=== PATIENT | female | born 1945 | race Caucasian/White ===

== ENCOUNTER → 2018-12-15 | Outpatient (CLI) | payer MEDICARE, MEDICAID | END | disposition home or self-care (01) | LOC: CARD 09:53 | PROVIDERS: ATTEND Psychiatry & Neurology Neurology | DX: S09.90XA Unspecified injury of head, initial encounter (principal); X58.XXXA Exposure to other specified factors, initial encounter; Y93.89 Activity, other specified; Y92.89 Other specified places as the place of occurrence of the external cause; Y99.8 Other external cause status ==

== ENCOUNTER 2019-06-19 14:06 | Emergency (ER) | payer MEDICARE, MEDICAID ==
[~2019-06-19] VITALS: Ht 162.6 cm; Wt 70.0 kg
[2019-06-19] MEDS ORDERED: SITA1TBM PO (14:11)
[2019-06-19] MEDS ORDERED: METO-396 PO (14:11)
[2019-06-19] MEDS ORDERED: ATOR10TA69 PO (14:11)
[2019-06-19] MEDS ORDERED: LEVO25TA7 PO (14:11)
[2019-06-19] MEDS ORDERED: ACETAMINOPHEN 325MG TABLET PO ONE (16:00)
[2019-06-19 19:16] VITALS: BP 158/76
== END 2019-06-19 19:16 | disposition home or self-care (01) ==
LOC: ER 14:06
DX: S52.611A Displaced fracture of right ulna styloid process, initial encounter for closed fracture (principal); S52.591A Other fractures of lower end of right radius, initial encounter for closed fracture; W10.8XXA Fall (on) (from) other stairs and steps, initial encounter; Y93.01 Activity, walking, marching and hiking; Y92.017 Garden or yard in single-family (private) house as the place of occurrence of the external cause
CPT/HCPCS: 29125; 73110; 99283